=== PATIENT | female | born 1990 | race American Indian/Alaskan Native ===

== ENCOUNTER 2017-06-02 04:43 | Outpatient (CLI) | payer MEDICAID ==
[2017-06-02 08:16] VITALS: BP 128/80
== END 2017-06-02 08:35 | disposition home or self-care (01) ==
LOC: TRG 04:43
PROVIDERS: ATTEND Obstetrics & Gynecology
DX: O47.1 False labor at or after 37 completed weeks of gestation (principal); Z3A.38 38 weeks gestation of pregnancy
CPT/HCPCS: 59020; 59025

== ENCOUNTER 2017-06-07 20:56 | Inpatient (IN) | payer MEDICAID ==
[2017-06-07] MEDS ORDERED: BRETHINE SUB-Q PRN (21:17)
[2017-06-07] MEDS ORDERED: STADOL IV PRN (21:17)
[2017-06-07] MEDS ORDERED: SUBLIMAZE IV PRN (21:17)
[2017-06-07] MEDS ORDERED: BRETHINE IVP PRN (21:17)
[2017-06-07] MEDS ORDERED: ePHEDrine SULFATE IV PRN ×2 (21:17→23:14)
[2017-06-07] MEDS ORDERED: MINERAL OIL PO PRN (21:17)
[2017-06-07] MEDS ORDERED: XYLOCAINE 2% INFILTRATI ONE (21:17)
[2017-06-07] MEDS ORDERED: ZOFRAN IV PRN (21:17)
[2017-06-07] MEDS ORDERED: LACTATED RINGERS 1,000 ML ONE (21:18)
[2017-06-07] MEDS: LACTATED RINGERS 1,000 ML IV SCH ×2 (21:30→22:03)
[2017-06-07 21:47] LABS: Hematocrit 35.1 % (30.3-42.9); Hemoglobin 11.8 gm/dl (10.1-14.3); Mean Corpuscular HGB Conc 34 % (30-34); Mean Corpuscular Hemoglobin 28 pg (28-32); Mean Corpuscular Volume 82 fl (79-97); Platelet Count 254 K/mm3 (140-440); Red Blood Count 4.28 M/mm3 (3.65-5.03); Red Cell Distribution Width 15.4 % (13.2-15.2); White Blood Count 16.4 K/mm3 (4.5-11.0)
[2017-06-07] MEDS ORDERED: PITOCin/NS 20 UNIT/1000ML DRIP 20 UNITS/1,000 ML BAG IV SCH (22:00)
[2017-06-07] MEDS ORDERED: ePHEDrine SULFATE ONE (22:34)
--- NOTE | 2017-06-07 22:39 | History and Physical Report ---
History of Present Illness Date of examination: 06/07/17 Date of admission: 06/07/17 21:08 Chief complaint: I'm ancelmo History of present illness: Patient is a 26 year old who presents with EDC on 06/12/17 with contractions in active labor. She has received regular care with [facility] since early in the second trimester. Patient has HSV, and is rubella non immune. 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 Family/Genetic History: none Social history: - Obstetrical History Expected Date of Delivery: 06/12/17 Actual Gestation: 39 Week(s) 2 Day(s) : 2 Para: 1 Number of Living Children: 1 Medications and Allergies Allergies Allergy/AdvReac Type Severity Reaction Status Date / Time No Known Allergies Allergy Unverified 06/02/17 05:25 Active Meds: Active Medications Butorphanol Tartrate (Stadol) 2 mg IV Q2H PRN PRN Reason: Pain , Severe (7-10) Fentanyl (Sublimaze) 100 mcg IV Q2H PRN PRN Reason: Labor Pain Last Admin: 06/07/17 22:01 Dose: 100 mcg Lactated Ringer's (Lactated Ringers) 1,000 mls @ 125 mls/hr IV DIRECT ANNETTA Last Admin: 06/07/17 22:03 Dose: 125 mls/hr Oxytocin/Sodium Chloride (Pitocin/Ns 20 Unit/1000ml Drip) 20 units in 1,000 mls @ 125 mls/hr IV DIRECT ANNETTA Mineral Oil (Mineral Oil) 30 ml PO QHS PRN PRN Reason: Constipation Ondansetron HCl (Zofran) 4 mg IV Q8H PRN PRN Reason: Nausea And Vomiting Review of Systems All systems: negative Genitourinary: contractions - Vital Signs Vital signs: Vital Signs Pulse Pulse Ox 79 97 06/07/17 21:33 06/07/17 21:33 Temp Pulse Resp BP Pulse Ox 97.7 F 81 22 95 06/07/17 21:36 06/07/17 22:31 06/07/17 22:01 06/07/17 22:31 - Physical Exam Cardiovascular: Regular rate, Normal S1, Normal S2 Lungs: Positive: Clear to auscultation, Normal air movement Abdomen: Positive: normal appearance, soft, normal bowel sounds Genitourinary (Female): Positive: normal external genitalia, normal perenium Vulva: both: normal Vagina: Positive: normal moisture Uterus: Positive: enlarged Extremities: Positive: normal Deep Tendon Reflex Grade: Normal +2 - Obstetrical FHR: auscultation normal Cervical Dilatation: 7 Cervical Effacement Percentage: 90 station: -2 Uterine Contraction Pattern: Regular Uterine Contraction Intensity: Moderate Results Result Diagrams: 06/07/17 21:19 Abnormal lab results 06/07/17 Range/Units 21:19 WBC 16.4 H (4.5-11.0) K/mm3 RDW 15.4 H (13.2-15.2) % All other labs normal. Assessment and Plan Patient is a 26 year old who presents for active labor. Admit for labor. AROM when able. Patient may have epidural. Anticipate .
[2017-06-07] MEDS ORDERED: NARCAN 2 MG/2 ML IV PRN (23:14)
--- NOTE | 2017-06-07 23:14 | Anesthesia Consultation ---
Anesthesia Consult and Med Hx Date of service: 06/07/17 - Airway Anesthetic Teeth Evaluation: Good ROM Head & Neck: Adequate Mental/Hyoid Distance: Adequate Mallampati Class: Class II Intubation Access Assessment: Good - Pulmonary Exam CTA: Yes - Cardiac Exam Cardiac Exam: No Murmur - Pre-Operative Health Status ASA Pre-Surgery Classification: ASA2 Proposed Anesthetic Plan: Epidural - Pulmonary Hx Asthma: No COPD: No Hx Pneumonia: No - Cardiovascular System Hx Hypertension: Yes (Hx PIH) - Central Nervous System Hx Seizures: No Hx Psychiatric Problems: No - Endocrine Hx Renal Disease: No Hx End Stage Renal Disease: No Hx Hypothyroidism: No Hx Hyperthyroidism: No - Hematic Hx Anemia: No Hx Sickle Cell Disease: No - Other Systems Hx Alcohol Use: No
[2017-06-07] MEDS ORDERED: PITOCin/NS 30 UNIT/500ML 30,000 MILLIUNITS/500 ML BAG IV ONE (23:29)
[2017-06-07] MEDS ORDERED: fentaNYL-BUPIV 2 MCG/ML-0.125% 200 MCG/100 ML BAG EPIDURAL SCH (23:45)
[2017-06-08] MEDS ORDERED: PITOCin/NS 30 UNIT/500ML 30,000 MILLIUNITS/500 ML BAG IV ONE (01:30)
--- NOTE | 2017-06-08 02:26 | Procedure Note ---
OB Delivery Note - Delivery Date of Delivery: 06/08/17 Surgeon: KARIME FERNANDEZ Estimated blood loss: other (150) - Vaginal Delivery presentation: vertex Delivery position: OA Intrapartum events: none Delivery induction: none Delivery augmentation: rupture of membranes Delivery monitor: external FHT, external uterine Route of delivery: Delivery placenta: spontaneous Delivery cord: nuchal cord, 3 umbilical vessels Episiotomy: none Delivery laceration: 1st degree Delivery repair: chromic Anesthesia: epidural Delivery comments: Viable male delivered over intact perineum with tight nuchal cord, clamped and cut on the perineum. Weight 7 pounds 6 ounces. apgars 8,9. placed on maternal abdomen. Placenta delivered spontaneously and intact with 3vc. Small laceration repaired with 2.0 chromic. Excellent hemostasis. Patient tolerated procedure well. - Infant A at 1 minute: 8 at 5 minutes: 9 Gender: Male (7 pounds 6 ounces)
[2017-06-08] MEDS: MOTRIN PO SCH ×3 (09:00→22:54)
[2017-06-08] MEDS ORDERED: ZOFRAN IV PRN (10:14)
[2017-06-08] MEDS ORDERED: TUCKS PAD TP PRN (10:14)
[2017-06-08] MEDS ORDERED: TYLENOL PO PRN (10:14)
[2017-06-08] MEDS ORDERED: DULCOLAX PR PRN (10:14)
[2017-06-08] MEDS ORDERED: PHENERGAN PO PRN (10:14)
[2017-06-08] MEDS ORDERED: LANSINOH TP PRN (10:14)
[2017-06-08] MEDS ORDERED: BENADRYL PO PRN ×2 (10:14→11:47)
[2017-06-08] MEDS ORDERED: MILK OF MAGNESIA PO PRN ×2 (10:14→11:47)
[2017-06-08] MEDS ORDERED: SODIUM CHLORIDE FLUSH SYRINGE 10 ML IV NR ×2 (11:00→12:00)
[2017-06-08] MEDS ORDERED: NORCO 5/325 PO PRN (11:47)
[2017-06-08] MEDS ORDERED: PHENERGAN PR PRN (11:47)
[2017-06-08 22:27] LABS: Hematocrit 28.9 % (30.3-42.9); Hemoglobin 9.7 gm/dl (10.1-14.3)
[2017-06-08] MEDS: COLACE PO SCH (22:54)
[2017-06-09 01:45] VITALS: BP 135/73
[2017-06-09] MEDS: MOTRIN PO SCH ×2 (05:39→12:12)
[2017-06-09] MEDS ORDERED: M-M-R II VACCINE SUB-Q ONE (06:00)
[2017-06-09] MEDS ORDERED: BOOSTRIX IM ONE (06:00)
[2017-06-09] MEDS ORDERED: PRENATAL VITAMIN PO SCH (10:00)
--- NOTE | 2017-06-09 11:42 | Progress Note ---
Assessment and Plan PPd 1 s/p . Doing well. Plan for discharge on today. Subjective - Subjective Date of service: 06/09/17 Interval history: Patient is a 26 year old who presents with EDC on 06/12/17 with contractions in active labor. She has received regular care with [facility] since early in the second trimester. Patient has HSV, and is rubella non immune. Patient reports: appetite normal, voiding normally, pain well controlled, ambulating normally [place]: doing well Objective - Vital Signs Latest vital signs: Vital Signs Temp Pulse Resp BP 06/09/17 00:45 98.1 F 84 20 135/73 06/08/17 16:27 97.8 F 84 20 116/60 06/08/17 11:45 98.7 F 86 20 122/72 Intake and Output 06/08/17 06/09/17 06/09/17 22:59 06:59 14:59 Intake Total 600 240 Balance 600 240 Intake: Oral 600 240 Other: Total, Intake Amount 240 240 # Voids Void 1 1 - Exam Breasts: Present: deferred Cardiovascular: Present: Regular rate, Normal S1, Normal S2 Lungs: Present: Clear to auscultation, Normal air movement Abdomen: Present: normal appearance, soft Vulva: both: normal Uterus: Present: normal, firm Extremities: Present: normal Deep Tendon Reflex Grade: Normal +2 - Labs Labs: Abnormal lab results 06/08/17 Range/Units 22:14 Hgb 9.7 L (10.1-14.3) gm/dl Hct 28.9 L D (30.3-42.9) %
--- NOTE | 2017-06-09 11:45 | Discharge Summary ---
Providers - Providers Date of Admission: 06/07/17 21:08 Date of discharge: 06/09/17 Attending physician: KARIME FERNANDEZ Primary care physician: KARIME FERNANDEZ Hospitalization Reason for admission: active labor Delivery: Laceration: 1st degree Other procedures: none complications: none Discharge diagnosis: IUP at term delivered baby: male Condition at discharge: Good Disposition: DC-01 TO HOME OR SELFCARE Plan - Discharge Medications Prescriptions: Ibuprofen [Motrin 600 MG tab] 600 mg PO Q6H #40 tablet - Provider Discharge Summary Activity: routine, no sex for 6 weeks, no heavy lifting 4 weeks, no strenuous exercise Diet: routine Instructions: routine Additional instructions: [] Smoking cessation referral if applicable(refer to patient education folder for contact #) [] Refer to [facility] Booklet Call your doctor immediately for: * Fever > 100.5 * Heavy vaginal bleeding ( >1 pad per hour) * Severe persistent headache * Shortness of breath * Reddened, hot, painful area to leg or breast * Drainage or odor from incision. * Keep incision clean and dry at all times and follow doctor's instructions regarding bathing/showering Call office to schedule appointment for circumcision - Follow up plan Follow up: KARIME FERNANDEZ MD [Primary Care Provider] - 6 Weeks Forms: [facility] Discharge Summary
[2017-06-09] MEDS: COLACE PO SCH (12:00)
--- NOTE | 2017-06-09 14:46 | Progress Note ---
Subjective Date of service: 06/09/17 Interval history: 1st day after normal vaginal delivery Patient is in the bed, relatively comfortable. Pain is well controlled with pain meds. Ambulated well. No residual neurological deficit. No pruritus. No anesthesia complications Objective - Labs CBC & Chem 7: 06/08/17 22:14 Labs: Abnormal lab results 06/08/17 Range/Units 22:14 Hgb 9.7 L (10.1-14.3) gm/dl Hct 28.9 L D (30.3-42.9) %
== END 2017-06-09 15:40 | disposition home or self-care (01) | DRG 774 ==
LOC: TRG 20:56 → LD 21:08 → OB 06-08 04:01
PROVIDERS: ADMIT Obstetrics & Gynecology; ATTEND Obstetrics & Gynecology
PROC: 10E0XZZ Delivery of Products of Conception, External Approach (ICD-10-PCS; principal; 2017-06-08)
PROC: 0HQ9XZZ Repair Perineum Skin, External Approach (ICD-10-PCS; 2017-06-08)
PROC: 3E0S3CZ (ICD-10-PCS; 2017-06-08)
PROC: 00HU33Z Insertion of Infusion Device into Spinal Canal, Percutaneous Approach (ICD-10-PCS; 2017-06-08)
PROC: 3E0234Z Introduction of Serum, Toxoid and Vaccine into Muscle, Percutaneous Approach (ICD-10-PCS; 2017-06-09)
DX: O98.52 Other viral diseases complicating childbirth (principal); O16.4 Unspecified maternal hypertension, complicating childbirth; O69.1XX0 Labor and delivery complicated by cord around neck, with compression, not applicable or unspecified; Z3A.39 39 weeks gestation of pregnancy; O70.0 First degree perineal laceration during delivery; B00.9 Herpesviral infection, unspecified; Z37.0 Single live birth; Z23 Encounter for immunization
CPT/HCPCS: 36415; 85014; 85018; 85027; 86592; 86850; 86900; 86901; 90715; J2590; J3010; J7120